=== PATIENT | female | born 1945 | race Caucasian/White ===

== ENCOUNTER 2018-09-17 10:49 | Outpatient (CLI) | payer BC, MEDICARE, SELFPAY ==
[2018-09-17 13:36] LABS: ALT 28 U/L (12-78); AST 23 U/L (15-37); Albumin 3.9 g/dL (3.4-5.0); Alkaline Phosphatase 91 U/L (46-116); Anion Gap 8.4 mmol/L (3-11); BUN 19 mg/dL (7-18); Bilirubin, Total 0.7 mg/dL (0.2-1.0); CO2 28.6 mmol/L (21.0-32.0); CREATININE 1.04 mg/dL (0.55-1.02); Calcium 9.3 mg/dL (8.5-10.1); Chloride 105 mmol/L (98-107); Cholesterol 187 mg/dL (50-200); Estimated GFR 51.94 (mL/min/1.73m2); Glucose 100 mg/dL (70-100); HDL Cholesterol 105 mg/dL (40-60); LDL CHOLESTEROL 68 mg/dL (<100); Potassium 4.8 mmol/L (3.5-5.1); Sodium 142 mmol/L (136-145); Total Protein 6.8 g/dL (6.4-8.2); Triglyceride 48 mg/dL (30-150)
== END 2018-09-17 11:09 ==
PROVIDERS: PCP Family Medicine; Visit Provider Family Medicine
DX: I10 Essential (primary) hypertension (principal); K90.0 Celiac disease
CPT/HCPCS: 36415; 80053; 80061; 83721

== ENCOUNTER 2019-07-29 07:13 | Outpatient (CLI) | payer BC, MEDICARE, SELFPAY ==
[2019-07-29 16:58] LABS: ALT 30 U/L (14-59); AST 21 U/L (15-37); Albumin 2.3 g/dL (3.4-5.0); Alkaline Phosphatase 97 U/L (46-116); Anion Gap 9.6 mmol/L (3-11); BUN 14 mg/dL (7-18); Bilirubin, Total 0.2 mg/dL (0.2-1.0); CO2 27.4 mmol/L (21.0-32.0); CREATININE 1.04 mg/dL (0.55-1.02); Calcium 8.6 mg/dL (8.5-10.1); Chloride 106 mmol/L (98-107); Glucose 99 mg/dL (70-100); Potassium 4.3 mmol/L (3.5-5.1); Sodium 143 mmol/L (136-145); Total Protein 6.7 g/dL (6.4-8.2)
== END 2019-07-29 07:33 ==
PROVIDERS: PCP Family Medicine; Visit Provider Family Medicine
DX: I10 Essential (primary) hypertension (principal)
CPT/HCPCS: 36415; 80053

== ENCOUNTER 2019-10-21 00:12 | Outpatient (CLI) | payer BC, MEDICARE, SELFPAY ==
--- NOTE | 2019-10-21 08:07 | ETT_ITS ---
APPROVED REPORT Exam: Exercise Treadmill Patient Location: Out-Patient Room/Bed: Stress Nurse: Darling Centeno RN BMI: 36.31 Baseline Rhythm: Sinus Rhythm Indications: Tachycardia. Pt reports episodes of heart racing occuring at rest associated with chest pain radiating into her right arm, subsiding withing a few minutes after taking aspirin. Medical History Medical History: Angina, HTN Cardiac Medications: Losartan. Amlodipine. Allergies: Sulfa. Ibuprofen. ASHLEY inhibitor. Hep B vaccine, Diclofenac. Cardiac Risk Factors: HTN, FHX of CAD, former smoker Pretest Chest Pain Characteristics: Non-exertional Chest pain Exercise History: Physically active Lung Sounds: Clear to auscultation Heart Sounds: Regular Stress Test Details Test: Exercise stress testing was performed using a Alexis protocol. Rest Stress HR Resting HR Supine: 65 bpm Max Heart Rate (APMHR): 146 bpm Resting HR Standin bpm Target HR (85% APMHR): 124 bpm Max HR Achieved: 126 bpm % of APMHR: 86 HR response to stress: Normal HR response to stress BP Resting BP Supine: 150/80 mmHg Resting BP Standin/90 mmHg Max BP: 200/70 mmHg Recovery BP: 160/80 mmHg BP response to stress: Normal blood pressure response to stress. ECG Resting ECG: Sinus Rhythm Stress ECG: Sinus Tachycardia ST Change: No significant ST segment changes Arrhythmia: Rare VPC's Recovery ECG: Sinus Rhythm Recovery ST Change: No significant ST segment changes Recovery Arrhythmia: None Clinical Reason for Termination: Fatigue Stress Symptoms: Leg Fatigue, General Fatigue Exercise duration: 4 min31 sec Highest Stage Reached: Stage 2: 2.5 mph at 12% grade. Exercise capacity: 6.45 METs Functional Capacity: Average Capacity Angina Score: None Stress ECG Conclusion 1. Exercised for 4 minutes and 30 seconds (6 METS). Exercise was stopped due to general fatigue. 2. Patient had no symptoms of ischemia during exercise. 3. Patient's heart rate judy to 126 bpm which is 86% of maximum predicted heart rate. Rate-pressure product was 23,000 4. There is no evidence of ischemia on the ECG at this level of stress. 5. The Spain Score (4) estimates an annual cardiovascular mortality of 1% and a five year survival of 94%. Using the [place] Score there is an intermediate probability of angiographic coronary disease. Protocol Used: Alexis Protocol Stress Test Summary STAGE Time (mins) Speed (mph) Grade (%) HR BP SYMPTOMS METS Supine 65 150/80 Standing 69 160/90 1 3 1.7 10 126 168/96 4.6 2 6 2.5 12 135 7 1 min recovery 101 200/70 3 min recovery 83 190/90 6 min recovery 75 160/80
== END 2019-10-21 00:32 ==
PROVIDERS: PCP Family Medicine; Visit Provider Family Medicine
DX: R07.9 Chest pain, unspecified (principal); R00.0 Tachycardia, unspecified; I10 Essential (primary) hypertension; Z82.49 Family history of ischemic heart disease and other diseases of the circulatory system
CPT/HCPCS: 93017

== ENCOUNTER 2019-10-21 02:49 | Outpatient (CLI) | payer BC, MEDICARE, SELFPAY | END 2019-10-21 03:09 | PROVIDERS: PCP Family Medicine; Visit Provider Family Medicine | DX: R00.0 Tachycardia, unspecified (principal); I47.1 Supraventricular tachycardia | CPT/HCPCS: 93225 ==

== ENCOUNTER 2019-10-25 17:46 | Outpatient (CLI) | payer BC, MEDICARE, SELFPAY ==
--- NOTE | 2019-10-26 13:28 | W.HOLTRPT ---
Date of service: 10/26/19 Time of Service: 13:28 Holter Monitor Report Holter Monitor Note: This is a 2-day Holter monitor ordered for the indication of tachycardia. ?The patient was in normal sinus rhythm for the majority of the recording. (Heart rate range 51 bpm - 130 bpm) ?There were 2 episodes of supraventricular tachycardia with the longest lasting 7 beats. ?There were rare (0.1%) premature atrial contractions. ?There were 0 episodes of ventricular tachycardia and rare (0.2%) single ventricular ectopic beats. ?There were no episodes of atrial fibrillation no pauses greater than 3 seconds and no evidence of high degree heart block. ?There were no patient triggered events.
== END 2019-10-25 18:06 ==
PROVIDERS: PCP Family Medicine; Visit Provider Family Medicine
DX: R00.0 Tachycardia, unspecified (principal); I47.1 Supraventricular tachycardia
CPT/HCPCS: 93226

== ENCOUNTER 2019-10-26 13:28 | Outpatient (CLI) | payer BC, MEDICARE, SELFPAY | END 2019-10-26 13:48 | PROVIDERS: PCP Family Medicine; Referring Provider Family Medicine; Visit Provider Internal Medicine Cardiovascular Disease | DX: R00.0 Tachycardia, unspecified (principal); I47.1 Supraventricular tachycardia | CPT/HCPCS: 93227 ==

== ENCOUNTER 2019-11-04 01:39 | Outpatient (CLI) | payer BC, MEDICARE, SELFPAY ==
--- NOTE | 2019-11-04 13:50 | DI.US_ITS ---
APPROVED REPORT EXAM: Comprehensive 2D, Doppler, and color-flow Echocardiogram Patient Location: Out-Patient Bean Snipper: Kelsey Reardon RDCS (AE) Rhythm: NSR Indications: chest pain, unspecified R07.9, tachycardia R00.0 Conclusion Normal left ventricular wall thickness and chamber size. Estimated ejection fraction is 65 to 70%. There are no segmental wall motion abnormalities There is no chamber enlargement Aortic valve is mildly sclerotic. There is no aortic stenosis or regurgitation There is trace to mild mitral, pulmonic and tricuspid regurgitation Wall motion Left Ventricle The left ventricle is normal size. The left ventricular ejection fraction is within the normal range. There is normal left ventricular wall thickness. There is normal LV segmental wall motion. The left ventricular diastolic function is normal for age LVEF is estimated to be 65-70%. Right Ventricle The right ventricle is normal size. The right ventricular systolic function is normal. Atria The left atrium size is normal. The right atrium size is normal. Aortic Valve The aortic valve is trileaflet and mildly sclerotic There is no aortic valvular stenosis. No aortic r egurgitation is present. Mitral Valve The mitral valve is normal in structure. Trace to mild mitral regurgitation. Tricuspid Valve The tricuspid valve is normal in structure. Trace to mild tricuspid regurgitation. Pulmonic Valve The pulmonary valve is normal in structure. Trace to mild pulmonic regurgitation. Great Vessels The aortic root is normal in size. The ascending aorta is normal in size. IVC is normal in size and c ollapses >50% with inspiration. Pericardium Prominent anterior epicardial fat pad is present. 2D Dimensions IVSD d PLAX 0.91 cm F: 0.6-1.0 LV Vol A2C d MOD 74.7 mL LVPW d PLAX 0.78 cm F: 0.6 - 1.0 LV Vol A4C d MOD 114.5 mL LVID d PLAX 4.85 cm F: 3.8 - 5.2 LA vol/ BSA A2C s A-L 42.6 mL/m2 LVDs 2.55 cm F: 2.2 - 3.5 LA vol/ BSA A4C s A-L 29.1 mL/m2 Ao Root d 3.13 cm F: 2.7 - 3.3 LA Vol/ BSA Biplane s A-L 38.5 mL/m2 RVID Base (AP4) 4.10 cm (M/F) 2.5-4.1 LA Area A4C s MOD 18.86 cm2 RA Area A4C 14.09 cm2 LA Area A2C s MOD 24.97 cm2 RA Vol/ BSA A4C s A-L 15.2 mL/m2 LV EF A4C MOD 77.6 % Ao Asc Diam d 3.46 cm F: 2.3 - 3.1 LV EF A2C MOD 63.6 % LV EF Teichholz 78.0 % LV EF Biplane MOD 70.7 % LVEF (Hsieh's) 70.69 % F: 54 - 74 IVC Diam exp d SLAX 1.97 cm LV Volume 68.98 mL F: 46 - 106 LV Volume Index 33.16 mL/m2 F: 29 - 61 LV Vol Biplane MOD 93.2 mL FS 46.70 % M-Mode TAPSE 2.48 cm (M/F) <1.7 LV Diastology MV E' medial 0.098 (>0.07 m/s) E/A Ratio 0.7 LV E/e MED 7.75 (<14) PV S/D Ratio 2.54 MV E' lateral 0.082 (>0.1 m/s) A-A Duration 151.94 msec LV E/e LAT 9.30 (<14) MV E Vmax 0.76 (0.4-1.3 m/s) MV E/E' medial 7.79 MV A Vmax 1.05 (0.4-1.3 m/s) MV E/E' lateral 9.31 MV E/A Ratio 0.72 Aortic Valve LVOT Area 3.17 cm2 AoV Area Vmax 1.72 cm2 LVOT Vmax 1.07 m/s AoV Area/ BSA (Vmax) 0.82 cm2/m2 LVOT Mean Abel. 0.79 m/s AJ Mean Abel. 1.86 cm2 LVOT Peak Grad 4.5 mmHg AJ Mean Abel. Index 0.89 cm2/m2 LVOT Mean Grad 2.7 mmHg LVOT VTI 0.218 m LVOT Diam s 2.00 cm (M/F) 1.5-2.5 AoV Vmax 1.97 (0.5-1.3 m/s) Velocity Ratio 0.54 AoV Mean Aebl. 1.34 m/s AoV Peak Grad 15.5 mmHg LVOT SV 68.93 mL AoV Mean Grad 8.0 (<5 mmHg) AoV VTI 0.386 (0.18-0.25 m) AoV Area VTI 1.79 (2.5-4.5 cm2) AoV Area/ BSA (VTI) 0.86 cm/m2 Mitral Valve MV DT 354 (160-240 msec) MR VC 0.27 (0-0.3 cm) MV PHT 103 msec RUPV S Vmax 0.68 m/s MV Area PHT 2.14 cm2 RUPV D Vmax 0.27 m/s MV VTI 0.181 m MV Area VTI 3.81 (4.0-6.0 cm2) Pulm Vein s 0.68 m/s Pulm Vein d 0.27 m/s Pulm Vein a 0.31 m/s RUPV A Vmax 0.31 m/s RUPV A Dur 152 msec Pulmonary Valve PV Vmax 1.08 (0.5-1.5 m/s) RVOT Peak Gr. 3.42 mmHg PV Peak Grad 4.7 mmHg RVOT Mean Gr. 1.95 mmHg PV Mean Grad 2.7 mmHg RVOT VTI 0.197 m PV VTI 0.210 m RVOT Vmax 0.92 m/s Tricuspid Valve TR Peak Grad 28.2 mmHg TR Vmax 2.66 m/s RA Pressure 3.00 mmHg RVSP (TR) 31.2 mmHg
== END 2019-11-04 01:59 ==
PROVIDERS: PCP Family Medicine; Visit Provider Family Medicine
DX: R07.9 Chest pain, unspecified (principal); R00.0 Tachycardia, unspecified; I35.8 Other nonrheumatic aortic valve disorders; I34.0 Nonrheumatic mitral (valve) insufficiency; I10 Essential (primary) hypertension
CPT/HCPCS: 93306

== ENCOUNTER 2020-11-16 21:19 | Outpatient (REF) | payer BC, MEDICARE, SELFPAY ==
[2020-11-16 13:48] LABS: ALT 26 U/L (14-59); AST 17 U/L (15-37); Albumin 3.9 g/dL (3.4-5.0); Alkaline Phosphatase 90 U/L (46-116); Anion Gap 7.6 mmol/L (3-11); BUN 17 mg/dL (7-18); Bilirubin, Total 0.5 mg/dL (0.2-1.0); CO2 29.4 mmol/L (21.0-32.0); CREATININE 1.1 mg/dL (0.55-1.02); Calcium 9.4 mg/dL (8.5-10.1); Chloride 104 mmol/L (98-107); Estimated GFR 48.42 (mL/min/1.73m2); Glucose 105 mg/dL (74-106); Potassium 5.2 mmol/L (3.5-5.1); Sodium 141 mmol/L (136-145); Total Protein 6.8 g/dL (6.4-8.2)
== END 2020-11-16 21:20 | disposition home or self-care (01) ==
LOC: LBN 21:19
PROVIDERS: PCP Family Medicine; Visit Provider Family Medicine
DX: I10 Essential (primary) hypertension (principal)
CPT/HCPCS: 80053

== ENCOUNTER 2021-01-18 10:40 | Outpatient (CLI) | payer BC, MEDICARE, SELFPAY ==
[2021-01-19 15:15] LABS: COVID-19 RT-PCR UVMMC Result Negative (Negative)
== END 2021-01-18 10:41 | disposition home or self-care (01) ==
PROVIDERS: PCP Family Medicine; Visit Provider Family Medicine
DX: Z20.822 Contact with and (suspected) exposure to COVID-19 (principal); J02.9 Acute pharyngitis, unspecified
CPT/HCPCS: U0003

== ENCOUNTER 2021-08-27 03:58 | Outpatient (CLI) | payer BC, MEDICARE, SELFPAY ==
[2021-08-27 10:51] LABS: HCT 46.7 % (36.0-46.0); HGB 14.8 g/dL (11.2-15.7); MCH 28.2 pg (27.0-33.0); MCHC 31.7 % (32.0-36.0); MPV 9.9 fL (8.0-11.0); Platelet Count 288 10^3/uL (130-400); RBC 5.25 10^6/uL (3.93-5.22); RDW 13.7 % (11.7-14.6); RDW-SD 44.6 fL; WBC 6.92 10^3/uL (4.4-10.8)
[2021-08-27 11:51] LABS: ALT 26 U/L (14-59); AST 17 U/L (15-37); Albumin 3.9 g/dL (3.4-5.0); Alkaline Phosphatase 97 U/L (46-116); Anion Gap 8.4 mmol/L (3-11); BUN 17 mg/dL (7-18); Bilirubin, Total 0.5 mg/dL (0.2-1.0); CO2 27.6 mmol/L (21.0-32.0); Calcium 8.7 mg/dL (8.5-10.1); Chloride 105 mmol/L (98-107); Estimated GFR 53.91 (mL/min/1.73m2); Glucose 101 mg/dL (74-106); Potassium 4.4 mmol/L (3.5-5.1); Sodium 141 mmol/L (136-145); TSH (W/Ref FT4) 1.42 uIU/mL (0.36-3.74); Total Protein 6.7 g/dL (6.4-8.2)
[2021-08-27 12:02] LABS: Iron 73 ug/dL (50-170)
== END 2021-08-27 03:59 | disposition home or self-care (01) ==
LOC: LBO 03:59
PROVIDERS: PCP Family Medicine; Visit Provider Family Medicine
DX: I10 Essential (primary) hypertension (principal); R53.83 Other fatigue
CPT/HCPCS: 36415; 80053; 85027; 83540; 84443

== ENCOUNTER 2021-10-05 13:03 | Emergency (ER) | payer BC, MEDICARE, SELFPAY ==
[2021-10-05] VITALS (26 sets, daily range): BP systolic 147–194; BP diastolic 73–99; PULSE 83–110; RESP 9–30; O2SAT 95–100
[2021-10-05] MEDS: HYDROmorphone 2 MG/ML VIAL 1 MG IVP (13:35)
--- NOTE | 2021-10-05 13:46 | ED.GENADUL_ITS ---
Discharge Plan Disposition Patient Disposition: HOME Condition: Stable Discharge Details Clinical Impression: Closed fracture of proximal phalanx of right ring finger, Dislocation of shoulder, left, closed Primary Care Provider: Ignacia De La Rosa ED Provider: Dmitri Mcfarland Home Meds and New Rx's Prescriptions: Continued biotin 1 mg capsule 1 mg PO DAILY RF: 0 cyanocobalamin (vitamin B-12) [Vitamin B-12] 500 MCG tablet 1,000 mcg PO DAILY RF: 0 Fish Oil 1 EACH capsule 1 cap PO DAILY RF: 0 acetaminophen [Tylenol Extra Strength] 500 MG tablet 1,000 mg PO BID PRNRF: 0 Co Q-10 (with Vit E) 1 EACH capsule 1 ea PO DAILY RF: 0 multivitamin [Daily Multiple] 1 EACH tablet 1 ea PO DAILY RF: 0 losartan 100 mg tablet 100 mg PO DAILY Qty: 90 RF: 12 amlodipine 5 mg tablet 5 mg PO DAILY Qty: 90 RF: 4 meclizine 25 mg tablet 25 mg PO TID PRN (Reason: dizziness) Qty: 50 RF: 5 ferrous sulfate 28 mg iron Tablet 28 mg PO BID RF: 0 Discharge Instructions Instructions: Shoulder Dislocation (ED), Finger Fracture (ED) Additional Instructions: Please keep finger splint intact until follow-up with orthopedics. Please use shoulder sling until follow-up with orthopedics. Please take acetaminophen (tylenol) - 650mg every 6 hours by mouth as needed for pain. Your blood pressure was elevated today which I suspect is secondary to pain but please be sure to monitor and follow-up with your primary care physician. If blood pressure remains elevated, your blood pressure medication may need to be adjusted. Return to the ER immediately for any worsening or new concerning symptoms. Referrals: [facility] [Provider Group] Ignacia De La Rosa MD, [place] [Primary Care Provider] - Medical Decision Making 3091 --76-year-old female presents after mechanical fall from standing to the ground with injury to her left shoulder and right fourth digit. Patient is neurovascular intact distal upper extremities. No head injury. No neck pain or tenderness. Concern for left proximal humerus fracture. Plan to obtain x-ray. Patient has significant discomfort - I will provide Dilaudid 1 mg IV. Consider fracture of the right fourth digit. Will obtain x-ray. --X-ray of the left shoulder was interpreted by me: Dislocation. X-ray of the right hand was interpreted by me: Fracture proximal phalanx Reviewed results with the patient and discussed treatment recommendation, patient provided informed consent to procedural sedation and closed reduction. 1515--reduction successful. Post reduction film interpreted by me and shows intact joint. Sling has been applied. For treatment of rt 4th proximal phalanx fracture, volar splint was applied to third and fourth digits that extends to palm with fingers held in extension. Plan will be for follow-up with orthopedics next week. Patient was encouraged to use Tylenol to control her pain. Usual customary discharge instructions otherwise reviewed with the patient HPI General Mode of arrival: ambulatory . Date/Time Provider Initiated Documentation: 10/05/21 13:05 . Limitations to Documentation: no limitations . Information obtained by: patient . HPI Narrative: 76-year-old female with history of hypertension, presents after mechanical trip and fall from standing to the ground couple hours prior to arrival. Patient notes she landed on outstretched left arm and injured her shoulder. The chief complaint is shoulder pain. Pain is moderate and worse with any attempted movement of the shoulder. She has no associated numbness or tingling. She also notes pain in her right fourth digit that is mild. She did not hit her head, did not lose consciousness, she has no headache neck or back pain Related Data Home Medications Medication Instructions Recorded Confirmed Fish Oil 1 cap PO DAILY 05/13/13 10/05/21 cyanocobalamin (vitamin B-12) 1,000 mcg PO DAILY 05/13/13 10/05/21 [Vitamin B-12] acetaminophen [Tylenol Extra 1,000 mg PO BID PRN 11/11/13 10/05/21 Strength] Co Q-10 (with Vit E) 1 ea PO DAILY 01/22/16 10/05/21 multivitamin [Daily Multiple] 1 ea PO DAILY 07/11/16 10/05/21 biotin 1 mg capsule 1 mg PO DAILY 11/16/20 10/05/21 losartan 100 mg tablet 100 mg PO DAILY #90 tab-cap 06/18/21 10/05/21 amlodipine 5 mg tablet 5 mg PO DAILY #90 tab 07/17/21 10/05/21 meclizine 25 mg tablet 25 mg PO TID PRN #50 tab-cap 10/03/21 10/05/21 ferrous sulfate 28 mg PO BID 10/05/21 10/05/21 Previous Rx's Medication Instructions Recorded losartan 100 mg tablet 100 mg PO DAILY #90 tab-cap 06/18/21 amlodipine 5 mg tablet 5 mg PO DAILY #90 tab 07/17/21 meclizine 25 mg tablet 25 mg PO TID PRN #50 tab-cap 10/03/21 Allergies Allergy/AdvReac Type Severity Reaction Status Date / Time Sulfa (Sulfonamide Allergy Severe Unverified 10/05/21 13:45 Antibiotics) ibuprofen Allergy Intermediate Hives Unverified 10/05/21 13:45 ASHLEY Inhibitors Allergy Unverified 10/05/21 13:45 hepatitis B virus vaccine Allergy Unverified 10/05/21 13:45 diclofenac AdvReac Intermediate Skin Rash Unverified 10/05/21 13:45 General Stated Complaint: Orthopedic NATHAN: 3 Review of Systems All systems reviewed & are unremarkable except as noted in HPI and below Constitutional Constitutional: Denies fever(s) Cardiovascular Cardiovascular: Denies dyspnea Respiratory Respiratory: Denies dyspnea Musculoskeletal Musculoskeletal: Reports as per HPI PFSH All Active Problems (Updated 10/05/21 @ 15:22 by Dmitri Mcfarland MD) Closed fracture of proximal phalanx of right ring finger (Acute) Dislocation of shoulder, left, closed (Acute) Fatigue (Acute) Celiac disease (Chronic 05/13/13) Chronic pain of left ankle (Chronic 11/21/16) Essential hypertension (Chronic) Knee pain (Chronic) Surgery 2014 s/p replacements 09/15/05 Ulcerative colitis, unspecified (Chronic 05/13/13) S/P colectomy 1994 Medical History Abdominal pain recurrent Abdominal pain Anemia now resolved Anemia Calculus of gallbladder with cholecystitis (05/13/13) Dizziness and giddiness 05/13/13 Dizziness and giddiness (05/13/13) Hematuria unspecified U/A POS: , 04/17, 02/19, 05/23 retest-normal Hematuria Knee pain Shingles Tachycardia Vertigo BPV Vertigo Surgical History Cholecystectomy (~1996) History of total colectomy for Ulcerative colitis w/perforation; 1 1/2 remaining History of total colectomy Replacement of total knee joint (03/28/14) [facility] [place]; B/L REPLACEMENT S/P cholecystectomy 09/15/96 S/P tonsillectomy and adenoidectomy S/P total knee replacement 03/15/14 B/L Status post cholecystectomy Status post tonsillectomy and adenoidectomy Status post total knee replacement Tonsillectomy and adenoidectomy (~1960) Total colectomy (~1994) FOR ULCERATIVE COLITIS W/ PERFORATION;1 09/16 REMAINING. Family History Mother , 93 Diabetes Essential hypertension Arthritis Heart disease Stroke Cataract Glaucoma Father , 52 Heart disease Myocardial infarction Tobacco abuse Alcohol abuse Sister Essential hypertension Arthritis Cataract Glaucoma Sister Essential hypertension Arthritis Heart disease A-FIB Cataract Glaucoma Brother Essential hypertension Arthritis Cataract Glaucoma Substance abuse Maternal Grandfather Stroke Paternal Grandfather , 96 Stroke Colon cancer Maternal Grandmother , 77 Heart disease Myocardial infarction Paternal Grandmother , 90 Stroke Daughter Thyroid cancer COUSIN RA (rheumatoid arthritis) Thyroid cancer GREAT GRANDMOTHER Thyroid cancer Social History Smoking/Tobacco Use Status: Former Tobacco Use Quit Date: 09/15/81 Tobacco: How many years used: 18 Second Hand Exposure: Yes () Smoking risk assessment performed?: Yes Alcohol Intake: never Drug use: Never Substance use type: does not use Caregiver/Support person: No Household members: none Housing: house Communication Needs: None Do you need help understanding health information?: Never Pets and animals: Yes Pets and animals: horse(s) Sexually active: No Do you think of yourself as: straight/heterosexual Current gender identity: female What is your relationship status?: How often do you talk on the phone with friends or family?: twice per week How often do you get together with friends or relatives?: decline to answer How often do you attend hinduism or mandaeism services?: 4 or more times per year Do you belong to any clubs or organized social groups?: no Panel score (0-1 are the most socially isolated patients): 1 What type of physical activity do you participate in: walking and other Details: 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 Duration: > 90 minutes/day Frequency: 5-6 times per week Payton/Latter-Day: Jewish Special payton needs: No Seatbelt use: always Helmet use: Yes Helmet use: always Drive 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 Do you feel safe at home: Yes Do you feel safe in your relationship?: Yes Exam Const General: cooperative and no acute distress HENMT Head: normocephalic and atraumatic Mouth: moist mucous membranes Eyes Conjunctivae: normal conjunctivae Sclera: normal sclerae Neck Neck: full ROM and nontender Resp Auscultation: clear to auscultation bilaterally, no rales, no rhonchi and no wheezes Cardio Rate: regular rate and not tachycardic Rhythm: regular rhythm GI Palpation: soft, not firm, no guarding, no masses, not rigid and nontender Skin General skin exam: no rashes or lesions noted Neuro General: patient alert, patient awake, patient oriented x3 and tone normal Extrem General: other (Neurovascular intact bilateral distal upper extremity) Right upper extremity: hand Details: tenderness Location: of the 4th digit Location: at the MCP joint, at the proximal phalanx and at the PIP joint and abnormal ROM of finger (Fourth digit cannot fully extend as result of swelling, strength intact) Left upper extremity: shoulder/upper arm Details: tenderness Location: of the proximal humerus and abnormal ROM Details: held in an abnormal fashion Details: in ADduction and elbow/forearm Details: normal to inspection Course Vital Signs Vital signs: Vital Signs Pulse 110 H 10/05/21 13:07 Respiratory Rate 18 10/05/21 13:07 Blood Pressure 194/99 H 10/05/21 13:07 Pulse Oximetry 99 10/05/21 13:07 Pulse 110 H 10/05/21 13:07 Respiratory Rate 18 10/05/21 13:07 Respiratory Effort Non-Labored 10/05/21 13:11 Blood Pressure 194/99 H 10/05/21 13:07 Blood Pressure Position Sitting 10/05/21 13:07 Pulse Oximetry 99 10/05/21 13:07 Oxygen Delivery Method Room Air 10/05/21 13:07 Oxygen Flow Rate 0 10/05/21 13:07 Pain Level 10 10/05/21 13:21 Procedures Orthopedic Joint Reduction Joint #1: Time Out Performed: Yes Side: left Joint Reduction Location: shoulder Analgesia: procedural sedation Shoulder Technique Used (if applicable): traction/counter-traction and external rotation Post-reduction neuro exam: intact Post-reduction vascular: intact Post Reduction X-Ray Obtained: Yes Post Reduction X-Ray Results: reduced Splint Applied: Yes Patient Tolerated Procedure: well and no complications Orthopedic Splinting/Casting Injury #1: Side: right Upper Extremity Injury Location: finger Upper Extremity Immobilizer: volar splint Additional Comments: volar slint applied to 3rd and 4th digits Procedural Sedation Indication: fracture/dislocation reduction ASA Class: II Preparation: cafeteria monitor applied, pulse oximeter, capnometry used and supplemental O2 applied IV Propofol dose (mg): 200 Patient Tolerated Procedure: well Complications: none
--- NOTE | 2021-10-05 14:08 | DI.RAD_ITS ---
Exam(s) XR SHOULDER LT COMPLETE 2+V EXAM: XR SHOULDER LT COMPLETE 2+V CLINICAL HISTORY: pain, fall. TECHNIQUE: 2D digital imaging was performed. COMPARISON: CR CHEST 2 VIEWS PA,LAT from 10/01/2010 FINDINGS: BONES: Question an area of flattening at the superior humeral head could represent a Hill-Sachs lesio n. No definite glenoid fracture is seen. Old left upper rib fractures.. No bony destructive lesion is seen. JOINTS: Anterior dislocation of the humeral head with respect to the glenoid. AC joint is unremarkable. SOFT TISSUE: Normal. IMPRESSION: Anterior shoulder dislocation. DATA REPOSITORY: RADIATION DOSE DELIVERED:
--- NOTE | 2021-10-05 14:12 | DI.RAD_ITS ---
Exam(s) XR FINGER RT RING EXAM: XR FINGER RT RING CLINICAL HISTORY: pain, trauma. TECHNIQUE: 2D digital imaging was performed. COMPARISON: No exams were available for comparison FINDINGS: BONES: There is a mildly displaced fracture involving the proximal phalanx of the ring finger. There is no extension to the articular surface. No additional fractures are seen.. No bony destructive l esion is seen. JOINTS: Degenerative changes are noted in the interphalangeal joints, metacarpophalangeal joints and at the 1st carpal metacarpal joint. SOFT TISSUE: Normal. IMPRESSION: Fracture of the proximal phalanx of the ring finger. DATA REPOSITORY: RADIATION DOSE DELIVERED:
[2021-10-05] MEDS: Propofol 200 MG/20 ML VIAL 100 MG IVP (15:06)
--- NOTE | 2021-10-05 15:13 | RESPIRATORY ---
Pt stable, awake and alert on room air post sedation. No acute respiratory distress noted during procedure.
--- NOTE | 2021-10-05 15:23 | DI.RAD_ITS ---
Exam(s) XR SHOULDER LT COMP POST REDUC EXAM: XR SHOULDER LT COMP POST REDUC CLINICAL HISTORY: SHOULDER REDUCED. TECHNIQUE: 2D digital imaging was performed. COMPARISON: CR XR SHOULDER LT COMPLETE 2+V from 10/05/2021 2 portable views. FINDINGS: The previously noted dislocation has been has been reduced. No fracture is visible on the two views performed. DATA REPOSITORY: RADIATION DOSE DELIVERED:
== END 2021-10-05 16:24 | disposition home or self-care (01) ==
PROVIDERS: Emergency Provider Student in an Organized Health Care Education/Training Program; PCP Family Medicine
DX: S62.614A Displaced fracture of proximal phalanx of right ring finger, initial encounter for closed fracture (principal); S43.085A Other dislocation of left shoulder joint, initial encounter; W18.39XA Other fall on same level, initial encounter; R03.0 Elevated blood-pressure reading, without diagnosis of hypertension
CPT/HCPCS: 23650; 29125; 73030; 96374; 99284; 73140; J2704

== ENCOUNTER 2021-10-11 12:39 | Outpatient (CLI) | payer BC, MEDICARE, SELFPAY ==
--- NOTE | 2021-10-11 09:45 | DI.RAD_ITS ---
Exam(s) XR FINGER RT RING EXAM: XR FINGER RT RING CLINICAL HISTORY: follow up. TECHNIQUE: 2D digital imaging was performed of the right finger. Three views were obtained. PA/AP, oblique, and lateral views were obtained. COMPARISON: CR XR FINGER RT RING from 10/05/2021 FINDINGS: BONES: There has been no change in alignment of the fracture involving the proximal phalanx of the ri ght ring finger. No bony destructive lesion is seen. JOINTS: Mild degenerative changes are seen at the DIP joint of the ring finger. SOFT TISSUE: There is soft tissue swelling of the ring finger. IMPRESSION: Stable alignment of the fracture involving the proximal phalanx of the right ring finger. DATA REPOSITORY: RADIATION DOSE DELIVERED:
== END 2021-10-11 12:40 | disposition home or self-care (01) ==
LOC: DIORS 12:40
PROVIDERS: PCP Family Medicine; Referring Provider Family Medicine; Visit Provider Physician Assistant Surgical
DX: S62.614A Displaced fracture of proximal phalanx of right ring finger, initial encounter for closed fracture (principal); W19.XXXA Unspecified fall, initial encounter
CPT/HCPCS: 73140

== ENCOUNTER 2021-10-31 02:37 | Outpatient (CLI) | payer BC, MEDICARE, SELFPAY ==
[2021-10-31 20:05] LABS: ALT 23 U/L (14-59); AST 19 U/L (15-37); Alkaline Phosphatase 93 U/L (46-116); Anion Gap 9.2 mmol/L (3-11); BUN 20 mg/dL (7-18); Bilirubin, Total 0.4 mg/dL (0.2-1.0); CO2 26.8 mmol/L (21.0-32.0); CREATININE 1.1 mg/dL (0.55-1.02); Calcium 9.2 mg/dL (8.5-10.1); Chloride 104 mmol/L (98-107); Estimated GFR 48.29 (mL/min/1.73m2); Glucose 92 mg/dL (74-106); Potassium 4.4 mmol/L (3.5-5.1); Sodium 140 mmol/L (136-145); Total Protein 6.7 g/dL (6.4-8.2)
[2021-11-02 10:40] LABS: Hepatitis C Ab w Rflx HCV PCR Negative (Negative)
== END 2021-10-31 02:38 | disposition home or self-care (01) ==
LOC: LBO 02:37
PROVIDERS: PCP Family Medicine; Visit Provider Family Medicine
DX: Z11.59 Encounter for screening for other viral diseases (principal); I10 Essential (primary) hypertension
CPT/HCPCS: 36415; 80053; 86803

== ENCOUNTER 2021-11-06 10:34 | Outpatient (CLI) | payer BC, MEDICARE, SELFPAY ==
--- NOTE | 2021-11-06 10:00 | DI.RAD_ITS ---
Exam(s) XR FINGER RT RING EXAM: XR FINGER RT RING CLINICAL HISTORY: RRF FRACTURE TECHNIQUE: COMPARISON: CR XR FINGER RT RING from 10/11/2021 FINDINGS: Three views were obtained. The previously described fracture of the proximal phalanx of the ring fin girma is again noted with no gross interval change in alignment of the fracture fragments in comparison with the examination of October 11. There is callus at the fracture site. IMPRESSION: RADIATION DOSE DELIVERED: Total DLP
== END 2021-11-06 10:35 | disposition home or self-care (01) ==
LOC: DIORS 10:35
PROVIDERS: PCP Family Medicine; Referring Provider Family Medicine; Visit Provider Student in an Organized Health Care Education/Training Program
DX: S62.614D Displaced fracture of proximal phalanx of right ring finger, subsequent encounter for fracture with routine healing (principal); W19.XXXD Unspecified fall, subsequent encounter
CPT/HCPCS: 73140

== ENCOUNTER 2021-12-04 10:00 | Outpatient (CLI) | payer BC, MEDICARE, SELFPAY ==
--- NOTE | 2021-12-04 09:45 | DI.RAD_ITS ---
Exam(s) XR FINGER RT RING EXAM: XR FINGER RT RING INDICATION: F/U right ring finger fracture. COMPARISON: CR XR FINGER RT RING from 11/06/2021 TECHNIQUE: 2D digital imaging was performed. Three views FINDINGS: There has been continued healing of the fracture of the proximal phalanx. The alignment is unchanged . Degenerative changes are again noted of the interphalangeal joints. No new abnormalities. DATA REPOSITORY: RADIATION DOSE DELIVERED:
== END 2021-12-04 10:01 | disposition home or self-care (01) ==
LOC: DIORS 10:00
PROVIDERS: PCP Family Medicine; Referring Provider Family Medicine; Visit Provider Physician Assistant
DX: S62.614D Displaced fracture of proximal phalanx of right ring finger, subsequent encounter for fracture with routine healing (principal); W19.XXXD Unspecified fall, subsequent encounter
CPT/HCPCS: 73140

== ENCOUNTER 2022-10-29 02:41 | Outpatient (CLI) | payer MEDICARE, SELFPAY ==
[2022-10-29 14:28] LABS: ALT 21 U/L (14-59); AST 18 U/L (15-37); Albumin 3.7 g/dL (3.4-5.0); Alkaline Phosphatase 100 U/L (46-116); Anion Gap 4.6 mmol/L (3-11); BUN 16 mg/dL (7-18); Bilirubin, Total 0.4 mg/dL (0.2-1.0); CO2 30.4 mmol/L (21.0-32.0); CREATININE 1.3 mg/dL (0.55-1.02); Calcium 8.9 mg/dL (8.5-10.1); Chloride 105 mmol/L (98-107); Estimated GFR 42.35 (mL/min/1.73m2); Glucose 120 mg/dL (74-106); Potassium 4.4 mmol/L (3.5-5.1); Sodium 140 mmol/L (136-145); Total Protein 6.8 g/dL (6.4-8.2)
== END 2022-10-29 02:42 | disposition home or self-care (01) ==
LOC: LBO 02:41
PROVIDERS: PCP Family Medicine; Visit Provider Family Medicine
DX: I10 Essential (primary) hypertension (principal)
CPT/HCPCS: 36415; 80053

== ENCOUNTER 2024-01-26 04:56 | Outpatient (CLI) | payer OTHER, MEDICARE, SELFPAY ==
[2024-01-26 12:07] LABS: Hemoglobin A1C 5.8 % (<5.7)
[2024-01-26 12:11] LABS: ALT 19 U/L (14-59); AST 17 U/L (15-37); Albumin 3.8 g/dL (3.4-5.0); Alkaline Phosphatase 100 U/L (46-116); Anion Gap 11.5 mmol/L (3-11); BUN 21 mg/dL (7-18); Bilirubin, Total 0.6 mg/dL (0.2-1.0); CO2 26.5 mmol/L (21.0-32.0); CREATININE 1.1 mg/dL (0.55-1.02); Calculated LDL 80 mg/dL (<100); Chloride 105 mmol/L (98-107); Cholesterol 205 mg/dL (<200); Estimated GFR 51.43 (mL/min/1.73m2); Glucose 98 mg/dL (74-106); HDL Cholesterol 108 mg/dL (40-60); Sodium 143 mmol/L (136-145); Total Protein 7.2 g/dL (6.4-8.2); Triglyceride 86 mg/dL (<150)
== END 2024-01-26 04:57 | disposition home or self-care (01) ==
PROVIDERS: PCP Family Medicine; Visit Provider Family Medicine
DX: I10 Essential (primary) hypertension (principal); E11.9 Type 2 diabetes mellitus without complications
CPT/HCPCS: 36415; 80053; 80061; 83036

== ENCOUNTER 2024-10-22 09:27 | Day surgery (SDC) | payer OTHER, MEDICARE, SELFPAY ==
[2024-10-22] MEDS: Tropicam./Phenyleph. (1/2.5%) 5 ML BTL OD ×3 (09:52→10:05)
[2024-10-22 09:56] VITALS: BP 167/78; PULSE 84; RESP 18; TEMP 36.6; O2SAT 98
--- NOTE | 2024-10-22 10:22 | ANES.PREOP_ITS ---
General Info Date of Service Date Performed: 10/22/24 Height: 5 ft 7 in Weight: 103.1 kg Body Mass Index (BMI): 35.6 Surgical Procedure: Operation Date: 10/22/24 10:40 Proposed Procedure Side Surgeon p Cataract Extraction with IOL Implant/Glaucoma Istent Right Moy Sevilla MD Meds Allergies and Home Medications Allergies Allergy/AdvReac Type Severity Reaction Status Date / Time Sulfa (Sulfonamide Allergy Severe Other (See Verified 10/22/24 09:47 Antibiotics) Comment) diclofenac Allergy Intermediate Skin Rash Verified 10/22/24 09:47 ibuprofen Allergy Intermediate Hives Verified 10/22/24 09:47 ASHLEY Inhibitors Allergy Unknown Verified 10/22/24 09:47 hepatitis B virus vaccine Allergy Unknown Verified 10/22/24 09:47 loratadine (From Claritin) AdvReac set off Verified 10/22/24 09:47 my colitis and caused urinary urgency Home Medication ?Medication ?Instructions ?Recorded cyanocobalamin (vitamin B-12) 500 1,000 mcg PO DAILY 05/13/13 mcg tablet (Vitamin B-12) omega-3 fatty acids-fish oil 340 1 cap PO DAILY 05/13/13 mg-1,000 mg capsule (Fish Oil) acetaminophen 500 mg tablet 1,000 mg PO BID PRN 11/11/13 (Tylenol Extra Strength) coenzyme Q10 50 mg-vitamin E 5 1 ea PO DAILY 01/22/16 unit capsule (Co Q-10 (with Vit E)) multivitamin (Daily Multiple 1 ea PO DAILY 07/11/16 tablet) biotin 1 mg capsule 1 mg PO DAILY 11/16/20 meclizine 12.5 mg tablet 12.5 mg PO TID PRN dizziness #30 11/20/23 tabs ferrous fumarate 325 mg (106 mg 325 mg PO DAILY 12/01/23 iron) tablet magnesium 200 mg tablet 200 mg PO DAILY 06/01/24 losartan 100 mg tablet 100 mg PO DAILY #90 tab-caps 10/11/24 amlodipine 5 mg tablet 5 mg PO HS 10/19/24 latanoprost 0.005 % eye drops drp 10/22/24 Current Visit Medications: Current Medications Generic Name Dose Route Start Last Admin Trade Name Freq PRN Reason Stop Dose Admin Acetaminophen 1,000 mg 10/22/24 06:00 Acetaminophen 500 Mg Tab PO 11/21/24 05:59 Q4H PRN PRN Balanced Salt Solution 500 ml 10/22/24 06:00 Balanced Salt Soln.-Plus 500 Ml Bag OP 11/21/24 05:59 DIRECTED NATALIA Miscellaneous Medication 0 ml 10/22/24 06:00 Prednisolone 1%, Moxifloxacin 0.5%, Bromfenac 0.09% 5.6ml Btl OD 11/21/24 05:59 DIRECTED NATALIA Miscellaneous Medication 0 ml 10/22/24 06:00 10/22/24 10:05 Tropicam./Phenyleph. (1/2.5%) 5 Ml Btl OD 11/21/24 05:59 1 drp DIRECTED NATALIA Administration Tetracaine HCl 0 ml 10/22/24 06:00 Tetracaine 0.5% 4 Ml Btl OD 11/21/24 05:59 DIRECTED NATALIA PFSH Active Problems Active Problems: Problem Status Onset Code Primary open-angle glaucoma, left eye, moderate stage Acute H40.1122 Nuclear age-related cataract, right eye Acute H25.11 Fatigue Acute R53.83 Celiac disease Chronic 05/13/13 K90.0 Chronic pain of left ankle Chronic 11/21/16 M25.572, G89.29 Essential hypertension Chronic I10 Knee pain Chronic M25.569 Ulcerative colitis, unspecified Chronic 05/13/13 K51.90 Medical History Medical History Encounter for hepatitis C screening test for low risk patient Tachycardia Abdominal pain Anemia Dizziness and giddiness (05/13/13) Hematuria Knee pain Vertigo Shingles Hematuria unspecified U/A POS: , 04/17, 02/19, 05/23 retest-normal Abdominal pain recurrent Vertigo BPV Anemia now resolved Dizziness and giddiness 05/13/13 Calculus of gallbladder with cholecystitis (05/13/13) Surgical History Surgical History History of total colectomy Status post cholecystectomy Status post tonsillectomy and adenoidectomy Status post total knee replacement S/P tonsillectomy and adenoidectomy History of total colectomy for Ulcerative colitis w/perforation; 1 1 remaining S/P cholecystectomy 09/15/96 S/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 [place]; B/L REPLACEMENT Tonsillectomy and adenoidectomy (~1960) Total colectomy (~1994) FOR ULCERATIVE COLITIS W/ PERFORATION;1 09/16 REMAINING. Cholecystectomy (~1996) Tobacco Smoking/Tobacco Use Status: Former Tobacco Use Passive smoking exposure: No Second hand exposure: Yes () Alcohol Alcohol Intake: never Substance Use Substance use: Never Substance use type: does not use Vital Signs and Lab Results Vital Signs Most Recent Vital Signs in EMR: Most Recent Vital Signs Temp Pulse Resp BP Pulse Ox 36.6 C 84 18 167/78 H 98 10/22/24 09:56 10/22/24 09:56 10/22/24 09:56 10/22/24 09:56 10/22/24 09:56 Lab Results Blood Type / Crossmatch: No Data to Display Complete Blood Count: 2 No Data to Display Complete Metabolic Panel: No Data to Display Liver Function Panel: No Data to Display Coagulation Panel: No Data to Display Cardiac Panel: No Data to Display Arterial Blood Gas: No Data to Display Venous Blood Gas: No Data to Display Pancreas Panel: No Data to Display Thyroid Panel: No Data to Display Infectious Disease: No Data to Display Blood Cultures: No Data to Display Toxicology Panel: No Data to Display Imaging and Studies Imaging and Studies Study information below may be from another EMR and interpreted by another provider. Please see original notes in EMR for more complete details. Stress Test Summary: Stress ECG Conclusion 1. Exercised for 4 minutes and 30 seconds (6 METS). Exercise was stopped due to general fatigue. 2. Patient had no symptoms of ischemia during exercise. 3. Patient's heart rate judy to 126 bpm which is 86% of maximum predicted heart rate. Rate-pressure product was 23,000 4. There is no evidence of ischemia on the ECG at this level of stress. 5. The [place] Score (4) estimates an annual cardiovascular mortality of 1% and a five year survival of 94%. Using the [place] Score there is an intermediate probability of angiographic coronary disease. Echocardiogram Summary: Date of Exam: 11/04/19 Sex: F Admission Date: 11/04/19 : 1945 Age: 74 Exam(s) a US:US echocardiogram APPROVED REPORT EXAM: Comprehensive 2D, Doppler, and color-flow Echocardiogram Patient Location: Out-Patient Mineralogy Teacher: Kelsey Reardon RDCS (AE) Rhythm: NSR Indications: chest pain, unspecified R07.9, tachycardia R00.0 Conclusion Normal left ventricular wall thickness and chamber size. Estimated ejection fraction is 65 to 70%. There are no segmental wall motion abnormalities There is no chamber enlargement Aortic valve is mildly sclerotic. There is no aortic stenosis or regurgitation There is trace to mild mitral, pulmonic and tricuspid regurgitation Anesthesia Assessment and Plan Anesthesia History Personal History: No History of Anesthesia Complications Family History: No Family History of Anesthesia Complications Exercise Tolerance Exercise Tolerance: Metabolic Equivalents>4 Pertinent Negatives Pertinent Negatives: No Symptoms of GERD Cardiac & Pulmonary Exam Cardiac Exam: Normal S1/S2 Heart Sounds Pulmonary Exam: Clear Bilateral Breath Sounds Implantable Cardiac Device Does patient have a Pacemaker or an ICD?: No Airway Exam Known Difficult Airway: No Mallampati Class: 2 Mouth Opening: Normal (> 3cm) Thyromental Distance: Greater than 3 cm Neck Range of Motion: Full ROM Neck Circumference: Normal Teeth Condition: Normal Dentition ASA Classification ASA Score: ASA 2 Emergency Case?: No NPO Status NPO Status: NPO Clears >2 hours, Solids >8 hours Anesthesia Plan Resuscitation Status: Full Code Anesthesia Technique: MAC Anesthesia Airway Planned: Natural Airway Monitors Used: Standard Monitors
[2024-10-22 10:25] VITALS: BMI 35.6
[2024-10-22] MEDS: Tetracaine 0.5% 4 ML BTL OD (11:21)
[2024-10-22] MEDS: Povidone-Iodine Ophth 30 ML BTL (11:22)
[2024-10-22] MEDS: Duovisc Viscoelastic System EACH 1 EACH (11:28)
[2024-10-22] MEDS: Lidocaine 1% Pres-Free 5 ML VIAL (11:29)
[2024-10-22] MEDS: Phenylephrine/Lidocaine (15/10) MG/ML 1 ML VIAL (11:29)
[2024-10-22] MEDS: Balanced Salt Soln.-PLUS 500 ML BAG OP (11:30)
[2024-10-22] MEDS: Moxifloxacin-PF 1 MG/ML VIAL (11:44)
[2024-10-22] MEDS: Prednisolone 1%, Moxifloxacin 0.5%, Bromfenac 0.09% 5.6ML BTL OD (11:45)
[2024-10-22 11:56] VITALS: BP 146/77; PULSE 70; RESP 16; TEMP 36.6; O2SAT 98
--- NOTE | 2024-10-22 11:58 | W.PM.DSUDISC ---
Date of service: 10/22/24 Discharge Plan Disposition Patient Disposition: Home Discharge Details Attending Provider: Moy Sevilla Primary Care Provider: Ignacia De La Rosa Home Meds and New Rx's Prescriptions: No Action ferrous fumarate 325 mg (106 mg iron) tablet 325 mg PO DAILY magnesium 200 mg tablet 200 mg PO DAILY biotin 1 mg capsule 1 mg PO DAILY cyanocobalamin (vitamin B-12) [Vitamin B-12] 500 MCG tablet 1,000 mcg PO DAILY Fish Oil 1 EACH capsule 1 cap PO DAILY acetaminophen [Tylenol Extra Strength] 500 MG tablet 1,000 mg PO BID PRN Co Q-10 (with Vit E) 1 EACH capsule 1 ea PO DAILY multivitamin [Daily Multiple] 1 EACH tablet 1 ea PO DAILY meclizine 12.5 mg tablet 12.5 mg PO TID PRN (Reason: dizziness) Qty: 30 4RF losartan 100 mg tablet 100 mg PO DAILY Qty: 90 0RF amlodipine 5 mg tablet 5 mg PO HS latanoprost 0.005 % drops Patient Comments: INSTILL 1 DROP INTO EACH EYE NIGHTLY AT BEDTIME SHAKE BOTTLE BEFORE USE; PINCH TEAR DUCTS CLOSED AFTER USING Discharge Instructions Stand Alone Forms: DSU Post-Op CataractChristine (DSU) Discharge Orders Discharge Orders: Discharge Order (Routine); Ordered 10/22/24 Ordered By: Moy Sevilla DS: Diagnosis Discharge Diagnosis (1) Nuclear age-related cataract, right eye: Status: Resolved
--- NOTE | 2024-10-22 11:59 | ROE_ITS ---
Operative Note Operative Note PRE-OP DIAGNOSIS: Nuclear cataract, left eye Primary open-angle glaucoma, left eye, moderate stage PROCEDURE: 1. Cataract extraction using phacoemulsification with intraocular lens implant, left eye 2. Insertion of multiple anterior segment aqueous drainage devices ([employer] iStent inject) into trabecular meshwork, left eye SURGEON: Moy Sevilla ANESTHESIA TYPE: Local By Surgeon and MAC Refer to Anesthesia Record ESTIMATED BLOOD LOSS: 0 PATHOLOGY: none sent COMPLICATIONS: None Patient was transported to: same day Patient's condition: stable Implants: 1. Jourdan and Jourdan Vision Tecnis Eyhance DIB00 intraocular lens 2. Glaukos iStent inject trabecular micro-bypass stent Indications: 1. Progressive decreased vision due to cataract, left eye 2. Primary open angle glaucoma, left eye, moderate stage Procedure Description: CATARACT SURGERY OPERATIVE REPORT PREOPERATIVE DIAGNOSIS: Nuclear cataract, left eye Primary open-angle glaucoma, left eye, moderate stage POSTOPERATIVE DIAGNOSIS: Same OPERATION: 1. Cataract extraction using phacoemulsification with posterior chamber intraocular lens implant, left eye. 2. Insertion of multiple anterior segment aqueous drainage devices (Glaukos iStent inject) into trabecular meshwork, left eye IOL: IOL Hair Colorist/Model: Jourdan and Jourdan Vision Tecnis Eyhance DIB00 IOL Power: + 24.0 diopters IOL Serial Number: [id number] Optic Diameter: 6.0mm Haptic/Overall Diameter: 13.0mm PHACO INFO: Freddie Cent[employer]ion Vision System with OZil and Active Fluidics Cumulative Dispersed Energy (CDE): 8.02 seconds TRABECULAR MICRO-BYPASS STENT INFO: Glaukos iStent inject x 2 Reference Number: [id number] Serial Number: [id number] SURGEON: Moy Sevilla MD, FLAVIO ANESTHESIA: Monitored Anesthesia Care (MAC), with local sub-tenon's anesthetic infiltration COMPLICATIONS: None SPECIMENS: None INDICATIONS FOR PROCEDURE: The patient is a 79-year-old lady with history of progressive decreased vision in her right eye secondary to the development of nuclear cataract. She has a history of moderate stage primary open-angle glaucoma and has had previous selective laser trabeculoplasty. She has a severe sulfa allergy so some classes of topical glaucoma medications are ruled out. The option of cataract surgery was offered to the patient and she wished to proceed, along with glaucoma trabecular micro-bypass stent. See office notes for detailed information. PROCEDURE: The correct surgical eye was identified and marked as the left eye and the pupil was dilated in the preoperative area using mydriatics and cycloplegics. The dilated pupil size was 6.0 mm. . The patient was brought to the operating room where cardiopulmonary monitoring was instituted and surgical time-out was performed, confirming the correct operative eye and IOL power. Topical anesthesia was administered and ophthalmic povidone-iodine 5% was instilled into the conjunctival fornices. The lisa-ocular area was prepped with Betadine 10% solution and draped in the usual sterile fashion for intraocular surgery, including an aperture drape. A Tegaderm transparent film dressing was cut in half and used to cover the lashes and lid margins. Care was taken to sequester the lashes and lid margins under the Tegaderm dressing. A lid speculum was placed between the lids of the operative eye and the Freddie Lux[employer] Revalia operating microscope was maneuvered into position. Balwinder scissors were then used to make a conjunctival buttonhole approximately 6mm posterior to the limbus in the inferonasal quadrant. Blunt dissection was carried out to expose bare sclera, and a blunt-tipped sub-tenon?s anesthesia cannula was introduced and passed posteriorly along the globe where non- preserved plain lidocaine was injected into posterior sub-Tenon?s space. A sideport knife was used to make a paracentesis port superior/superiortemporally. Intraocular phenylephrine/lidocaine was injected into the anterior chamber. The anterior chamber was then filled with viscoelastic. A keratome knife was used to construct a clear corneal tunnel extending 2.0mm into clear cornea. . A flap was raised on the anterior capsule and capsulorhexis forceps were used to complete a continuous curvilinear capsulorhexis of 5.0 mm. Balanced salt solution was then used to perform cortical cleaving hydrodissection and nuclear hydrodelineation until the lens could be freely rotated within the capsular bag. The lens nucleus was then disassembled and removed within the capsular bag and iris plane using phacoemulsification. Residual cortical material was removed using the 45-degree angled silicone I/A tip with 0.3mm port. The posterior capsule was carefully polished to remove as much residual lens epithelial cells as safely possible. The capsular bag was then inflated and the anterior chamber deepened with viscoelastic. The lens implant described above was inserted into the capsular bag using the Jourdan and Jourdan Simplicity Injector. A Kuglen hook was used to dial the IOL into position. The anterior chamber was then slightly over-filled with viscoelastic. The microsope and the patient's head were tilted into the ideal position for viewing of the anterior chamber angle. Viscoelastic was placed on the cornea followed by a surgical gonionlens, and the anterior chamber angle landmarks were identified. The [employer] iStent inject handpiece was introduced into the anterior chamber and the insertion sleeve was retracted once the injector was distal to the pupillary margin. The trocar was advanced through the central portion of the trabecular meshwork and into the back wall of Schlemm's canal in the superiornasal quadrant, with care taken to ensure the micro-insertion tube was perpendicular to the trabecular meshwork. The trabecular meshwork was lightly dimpled and the stent was injected without difficulty. The same procedure was then performed in the inferiornasal quradrant. A third stent was then injected easily at the 3 o'clock position. The stents were then examined and noted to be in good position within the trabecular meshwork. A mild amount of blood reflux was noted in the stent apertures. The microscope and the patients head were returned to the normal coaxial position. Viscoelatic was then removed from the anterior chamber using the I/A handpiece. The lens implant was noted to center nicely within the capsular bag. The incisions were stromally hydrated, and the anterior chamber was reformed using BSS. Then 0.5cc of moxifloxacin 1.0mg/ml were injected into the capsular bag and anterior chamber. The incisions were checked with a Weck spear and found to be secure. Several drops of ophthalmic povidone-iodine 5% were then applied to the eye followed by two drops of Imprimis combination prednisolone/moxifloxacin/nepafenac solution. The drapes were removed and a clear plastic protective eye shield was placed over the eye. The patient was then returned to Same Day Surgery in stable condition. Date of Procedure: 10/22/24
--- NOTE | 2024-10-22 12:23 | W.ANESPOSTOP ---
Postoperative Evaluation Date, Time and Location Date Performed: 10/22/24 Time Performed: 12:16 Patient Location: Day Surgery Unit Vital Signs Most Recent Imported Vital Signs: Most Recent Vital Signs Temp Pulse Resp BP Pulse Ox 36.6 C 70 16 146/77 H 98 10/22/24 11:56 10/22/24 11:56 10/22/24 11:56 10/22/24 11:56 10/22/24 11:56 Pain Score Most Recent Pain Score: Most Recent Pain Score Pain Level 0 10/22/24 11:56 Assessment Mental Status: Awake (Alert & Oriented to Patient Baseline) Airway and Respiratory Function: Patent airway with normal (patient baseline) respiratory exam Cardiovascular Function: Hemodynamically Stable Hydration Status: Adequately Hydrated Nausea & Vomiting: No Nausea or Vomiting Pain: Pt. Denies Any Pain Peripheral Nerve Block: Patient did not receive a nerve block
== END 2024-10-22 12:06 | disposition home or self-care (01) ==
PROVIDERS: PCP Family Medicine; Visit Provider Ophthalmology
PROC: (CPT 66991; principal; 2024-10-22 10:30)
DX: H25.12 Age-related nuclear cataract, left eye (principal); H40.1122 Primary open-angle glaucoma, left eye, moderate stage
CPT/HCPCS: 66991; 00123; V2632; J2003

== ENCOUNTER 2024-10-29 11:55 | Day surgery (SDC) | payer OTHER, MEDICARE, SELFPAY ==
[2024-10-29 12:20] VITALS: BP 152/78; PULSE 78; RESP 18; TEMP 36.4; O2SAT 98
[2024-10-29] MEDS: Tropicam./Phenyleph. (1/2.5%) 5 ML BTL OS ×3 (12:40→12:54)
--- NOTE | 2024-10-29 13:40 | ANES.PREOP_ITS ---
General Info Date of Service Date Performed: 10/29/24 Height: 5 ft 7 in Weight: 103.1 kg Body Mass Index (BMI): 35.6 Surgical Procedure: Operation Date: 10/29/24 13:40 Proposed Procedure Side Surgeon p Cataract Extraction with IOL Implant, Glaucoma Stent Left Moy Sevilla MD Meds Allergies and Home Medications Allergies Allergy/AdvReac Type Severity Reaction Status Date / Time propofol Allergy Severe Skin Rash Verified 10/29/24 12:35 Sulfa (Sulfonamide Allergy Severe Other (See Verified 10/29/24 12:35 Antibiotics) Comment) diclofenac Allergy Intermediate Skin Rash Verified 10/29/24 12:35 ibuprofen Allergy Intermediate Hives Verified 10/29/24 12:35 ASHLEY Inhibitors Allergy Unknown Verified 10/29/24 12:35 hepatitis B virus vaccine Allergy Unknown Verified 10/29/24 12:35 loratadine (From Claritin) AdvReac set off Verified 10/29/24 12:35 my colitis and caused urinary urgency Home Medication ?Medication ?Instructions ?Recorded cyanocobalamin (vitamin B-12) 500 1,000 mcg PO DAILY 05/13/13 mcg tablet (Vitamin B-12) omega-3 fatty acids-fish oil 340 1 cap PO DAILY 05/13/13 mg-1,000 mg capsule (Fish Oil) acetaminophen 500 mg tablet 1,000 mg PO BID PRN 11/11/13 (Tylenol Extra Strength) coenzyme Q10 50 mg-vitamin E 5 1 ea PO DAILY 01/22/16 unit capsule (Co Q-10 (with Vit E)) multivitamin (Daily Multiple 1 ea PO DAILY 07/11/16 tablet) biotin 1 mg capsule 1 mg PO DAILY 11/16/20 meclizine 12.5 mg tablet 12.5 mg PO TID PRN dizziness #30 11/20/23 tabs ferrous fumarate 325 mg (106 mg 325 mg PO DAILY 12/01/23 iron) tablet magnesium 200 mg tablet 200 mg PO DAILY 06/01/24 losartan 100 mg tablet 100 mg PO DAILY #90 tab-caps 10/11/24 amlodipine 5 mg tablet 5 mg PO HS 10/19/24 latanoprost 0.005 % eye drops 1 drp ophthalmic (eye) QPM 10/22/24 Current Visit Medications: Current Medications Generic Name Dose Route Start Last Admin Trade Name Freq PRN Reason Stop Dose Admin Acetaminophen 1,000 mg 10/29/24 06:00 Acetaminophen 500 Mg Tab PO 11/28/24 05:59 Q4H PRN PRN Balanced Salt Solution 500 ml 10/29/24 06:00 Balanced Salt Soln.-Plus 500 Ml Bag OP 11/28/24 05:59 DIRECTED [facility] Miscellaneous Medication 0 ml 10/29/24 06:00 Prednisolone 1%, Moxifloxacin 0.5%, Bromfenac 0.09% 5.6ml Btl OS 11/28/24 05:59 DIRECTED NATALIA Miscellaneous Medication 0 ml 10/29/24 06:00 10/29/24 12:54 Tropicam./Phenyleph. (1/2.5%) 5 Ml Btl OS 11/28/24 05:59 1 drp DIRECTED NATALIA Administration Tetracaine HCl 0 ml 10/29/24 06:00 Tetracaine 0.5% 4 Ml Btl OS 11/28/24 05:59 DIRECTED NATALIA PFSH Active Problems Active Problems: Problem Status Onset Code Nuclear age-related cataract, left eye Acute H25.12 Primary open-angle glaucoma, left eye, moderate stage Chronic H40.1122 Fatigue Acute R53.83 Celiac disease Chronic 05/13/13 K90.0 Chronic pain of left ankle Chronic 11/21/16 M25.572, G89.29 Essential hypertension Chronic I10 Knee pain Chronic M25.569 Ulcerative colitis, unspecified Chronic 05/13/13 K51.90 Medical History Medical History Encounter for hepatitis C screening test for low risk patient Tachycardia Abdominal pain Anemia Dizziness and giddiness (05/13/13) Hematuria Knee pain Vertigo Shingles Hematuria unspecified U/A POS: 3, 04/17, 02/19, 05/23 retest-normal Abdominal pain recurrent Vertigo BPV Anemia now resolved Dizziness and giddiness 05/13/13 Calculus of gallbladder with cholecystitis (05/13/13) Surgical History Surgical History Nuclear age-related cataract, right eye History of total colectomy Status post cholecystectomy Status post tonsillectomy and adenoidectomy Status post total knee replacement S/P tonsillectomy and adenoidectomy History of total colectomy for Ulcerative colitis w/perforation; 1 2 remaining S/P cholecystectomy 09/15/96 S/P total knee replacement 03/15/14 B/L Replacement of total knee joint (03/28/14) [facility]; B/L REPLACEMENT Tonsillectomy and adenoidectomy (~1960) Total colectomy (~1994) FOR ULCERATIVE COLITIS W/ PERFORATION;1 09/16 REMAINING. Cholecystectomy (~1996) Tobacco Smoking/Tobacco Use Status: Former Tobacco Use Passive smoking exposure: No Second hand exposure: Yes () Alcohol Alcohol Intake: never Substance Use Substance use: Never Substance use type: does not use Vital Signs and Lab Results Vital Signs Most Recent Vital Signs in EMR: Most Recent Vital Signs Temp Pulse Resp BP Pulse Ox 36.4 C L 78 18 152/78 H 98 10/29/24 12:20 10/29/24 12:20 10/29/24 12:20 10/29/24 12:20 10/29/24 12:20 Lab Results Blood Type / Crossmatch: No Data to Display Complete Blood Count: No Data to Display Complete Metabolic Panel: No Data to Display Liver Function Panel: No Data to Display Coagulation Panel: No Data to Display Cardiac Panel: No Data to Display Arterial Blood Gas: No Data to Display Venous Blood Gas: No Data to Display Pancreas Panel: No Data to Display Thyroid Panel: No Data to Display Infectious Disease: No Data to Display Blood Cultures: No Data to Display Toxicology Panel: No Data to Display Imaging and Studies Imaging and Studies Study information below may be from another EMR and interpreted by another provider. Please see original notes in EMR for more complete details. Stress Test Summary: Stress ECG Conclusion 1. Exercised for 4 minutes and 30 seconds (6 METS). Exercise was stopped due to general fatigue. 2. Patient had no symptoms of ischemia during exercise. 3. Patient's heart rate judy to 126 bpm which is 86% of maximum predicted heart rate. Rate-pressure product was 23,000 4. There is no evidence of ischemia on the ECG at this level of stress. 5. The [place] Score (4) estimates an annual cardiovascular mortality of 1% and a five year survival of 94%. Using the [place] Score there is an intermediate probability of angiographic coronary disease. Echocardiogram Summary: Date of Exam: 11/04/19 Sex: F Admission Date: 11/04/19 : 1945 Age: 74 Exam(s) a US:US echocardiogram APPROVED REPORT EXAM: Comprehensive 2D, Doppler, and color-flow Echocardiogram Patient Location: Out-Patient Networking Specialist: Kelsey Reardon RDCS ([place]) Rhythm: NSR Indications: chest pain, unspecified R07.9, tachycardia R00.0 Conclusion Normal left ventricular wall thickness and chamber size. Estimated ejection fraction is 65 to 70%. There are no segmental wall motion abnormalities There is no chamber enlargement Aortic valve is mildly sclerotic. There is no aortic stenosis or regurgitation There is trace to mild mitral, pulmonic and tricuspid regurgitation Anesthesia Assessment and Plan Anesthesia History Personal History: No History of Anesthesia Complications Family History: No Family History of Anesthesia Complications Exercise Tolerance Exercise Tolerance: Metabolic Equivalents>4 Pertinent Negatives Pertinent Negatives: No Symptoms of GERD, No Major Cardiovascular Symptoms or Complaints and No Major Pulmonary Symptoms or Complaints Cardiac & Pulmonary Exam Cardiac Exam: Normal S1/S2 Heart Sounds Pulmonary Exam: Clear Bilateral Breath Sounds Implantable Cardiac Device Does patient have a Pacemaker or an ICD?: No Airway Exam Known Difficult Airway: No Mallampati Class: 2 Mouth Opening: Normal (> 3cm) Thyromental Distance: Greater than 3 cm Neck Range of Motion: Full ROM Neck Circumference: Normal Teeth Condition: Normal Dentition ASA Classification ASA Score: ASA 2 Emergency Case?: No NPO Status NPO Status: NPO Clears >2 hours, Solids >8 hours Anesthesia Plan Resuscitation Status: Full Code Anesthesia Technique: MAC Anesthesia Airway Planned: Natural Airway Monitors Used: Standard Monitors Preoperative Comments:: No MKO with last cataract.
[2024-10-29] MEDS: Duovisc Viscoelastic System EACH 1 EACH (14:44)
[2024-10-29] MEDS: Moxifloxacin-PF 1 MG/ML VIAL (14:44)
[2024-10-29] MEDS: Lidocaine 1% Pres-Free 5 ML VIAL (14:44)
[2024-10-29] MEDS: Povidone-Iodine Ophth 30 ML BTL (14:45)
[2024-10-29] MEDS: Phenylephrine/Lidocaine (15/10) MG/ML 1 ML VIAL (14:45)
[2024-10-29] MEDS: Balanced Salt Soln.-PLUS 500 ML BAG OP (14:46)
[2024-10-29] MEDS: Tetracaine 0.5% 4 ML BTL OS (14:47)
[2024-10-29] MEDS: Prednisolone 1%, Moxifloxacin 0.5%, Bromfenac 0.09% 5.6ML BTL OS (14:47)
[2024-10-29 15:04] VITALS: BMI 35.6
[2024-10-29 15:09] VITALS: BP 138/80; PULSE 78; RESP 16; TEMP 36.8; O2SAT 98
--- NOTE | 2024-10-29 15:14 | W.PM.DSUDISC ---
Date of service: 10/29/24 Discharge Plan Disposition Patient Disposition: Home Discharge Details Attending Provider: Moy Sevilla Primary Care Provider: Ignacia De La Rosa Home Meds and New Rx's Prescriptions: No Action ferrous fumarate 325 mg (106 mg iron) tablet 325 mg PO DAILY magnesium 200 mg tablet 200 mg PO DAILY biotin 1 mg capsule 1 mg PO DAILY cyanocobalamin (vitamin B-12) [Vitamin B-12] 500 MCG tablet 1,000 mcg PO DAILY Fish Oil 1 EACH capsule 1 cap PO DAILY acetaminophen [Tylenol Extra Strength] 500 MG tablet 1,000 mg PO BID PRN Co Q-10 (with Vit E) 1 EACH capsule 1 ea PO DAILY multivitamin [Daily Multiple] 1 EACH tablet 1 ea PO DAILY meclizine 12.5 mg tablet 12.5 mg PO TID PRN (Reason: dizziness) Qty: 30 4RF losartan 100 mg tablet 100 mg PO DAILY Qty: 90 0RF amlodipine 5 mg tablet 5 mg PO HS latanoprost 0.005 % drops 1 drp ophthalmic (eye) QPM Patient Comments: INSTILL 1 DROP INTO EACH EYE NIGHTLY AT BEDTIME SHAKE BOTTLE BEFORE USE; PINCH TEAR DUCTS CLOSED AFTER USING Discharge Instructions Stand Alone Forms: [facility] Post-Op CataractChristine ([facility]) Discharge Orders Discharge Orders: Discharge Order (Routine); Ordered 10/29/24 Ordered By: Moy Sevilla DS: Diagnosis Discharge Diagnosis (1) Primary open-angle glaucoma, left eye, moderate stage: Status: Chronic (2) Nuclear age-related cataract, left eye: Status: Resolved
--- NOTE | 2024-10-29 15:16 | W.PM.OP ---
Operative Note Operative Note PRE-OP DIAGNOSIS: Nuclear cataract, left eye Primary open-angle glaucoma, left eye, moderate stage POST-OP DIAGNOSIS: same PROCEDURE: Cataract extraction using phacoemulsification with intraocular lens implant, left eye Implantation of mulitple trabecular micro-bypass stents SURGEON: Moy Sevilla ANESTHESIA TYPE: Local By Surgeon and MAC Refer to Anesthesia Record PATHOLOGY: none sent COMPLICATIONS: None Patient was transported to: same day Patient's condition: stable Implants: Freddie Clareon [id number] Glaukos iStents Indications: Progressive decreased vision due to cataract, left eye Primary open angle glaucoma, left eye Procedure Description: CATARACT SURGERY OPERATIVE REPORT PREOPERATIVE DIAGNOSIS: Nuclear cataract, left eye Primary open-angle glaucoma, left eye, moderate stage POSTOPERATIVE DIAGNOSIS: Same OPERATION: 1. Cataract extraction using phacoemulsification with posterior chamber intraocular lens implant, left eye. 2. Insertion of multiple anterior segment aqueous drainage devices (Glaukos iStent) into trabecular meshwork, left eye IOL: IOL Aircraft Hydraulic Equipment Mechanic/Model: Jourdan & Jourdan Eyhance DIB00 IOL Power: + 24.5 diopters IOL Serial Number: [id number] Optic Diameter: 6.0mm Haptic/Overall Diameter: 13.0mm PHACO INFO: Freddie Centurion Vision System with OZil and Active Fluidics Cumulative Dispersed Energy (CDE): 5.73 seconds TRABECULAR MICRO-BYPASS STENT INFO: Glaukos iStent x 3 Reference Number: [id number] Serial Number: [id number] SURGEON: Moy Sevilla MD, FLAVIO ANESTHESIA: Monitored Anesthesia Care (MAC), with local sub-tenon's anesthetic infiltration COMPLICATIONS: None SPECIMENS: None INDICATIONS FOR PROCEDURE: The patient is a 79-year-old lady with history of moderate stage primary open-angle glaucoma who has developed visually significant cataracts in both eyes. She has already undergone cataract surgery in the right eye on 10/22/2024 with implantation of microtrabecular bypass stents. She is doing well postoperatively in the right eye and now presents for cataract surgery in the right eye with minimally invasive glaucoma surgery as well. See office notes for detailed information. PROCEDURE: The correct surgical eye was identified and marked as the left eye and the pupil was dilated in the preoperative area using mydriatics and cycloplegics. The dilated pupil size was 7.0 mm. Oral sedation was administered in the form of an Imprimis MKO Melt (midazolam 3mg/ketamine 25mg/ondansetron 2mg). The patient was brought to the operating room where cardiopulmonary monitoring was instituted and surgical time-out was performed, confirming the correct operative eye and IOL power. Topical anesthesia was administered and ophthalmic povidone-iodine 5% was instilled into the conjunctival fornices. The lisa-ocular area was prepped with Betadine 10% solution and draped in the usual sterile fashion for intraocular surgery, including an aperture drape. A Tegaderm transparent film dressing was cut in half and used to cover the lashes and lid margins. Care was taken to sequester the lashes and lid margins under the Tegaderm dressing. A lid speculum was placed between the lids of the operative eye and the Freddie [employer] Systems[employer] Revalia operating microscope was maneuvered into position. Balwinder scissors were then used to make a conjunctival buttonhole approximately 6mm posterior to the limbus in the inferonasal quadrant. Blunt dissection was carried out to expose bare sclera, and a blunt-tipped sub-tenon?s anesthesia cannula was introduced and passed posteriorly along the globe where non-preserved plain lidocaine was injected into posterior sub-Tenon?s space. A sideport knife was used to make a paracentesis port superiorly/superiortemporally. Intraocular phenylephrine/lidocaine was injected into the anterior chamber. The anterior chamber was then filled with viscoelastic. A keratome knife was used to construct a clear corneal tunnel extending 2.0mm into clear cornea. . A flap was raised on the anterior capsule and capsulorhexis forceps were used to complete a continuous curvilinear capsulorhexis of 5.0 mm. Balanced salt solution was then used to perform cortical cleaving hydrodissection and nuclear hydrodelineation until the lens could be freely rotated within the capsular bag. The lens nucleus was then disassembled and removed within the capsular bag and iris plane using phacoemulsification. Residual cortical material was removed using the 45-degree angled silicone I/A tip with 0.3mm port. The posterior capsule was carefully polished to remove as much residual lens epithelial cells as safely possible. The capsular bag was then inflated and the anterior chamber deepened with viscoelastic. The lens implant described above was inserted into the capsular bag using the Jourdan and Jourdan Simplicity pre-loaded injector. A Kuglen hook was used to dial the IOL into position. The anterior chamber was then slightly over-filled with viscoelastic. The microsope and the patient's head were tilted into the ideal position for viewing of the anterior chamber angle. Viscoelastic was placed on the cornea followed by a surgical gonionlens, and the anterior chamber angle landmarks were identified. The [employer] iStent injection handpiece was introduced into the anterior chamber and the insertion sleeve was retracted. The trocar was advanced through the central portion of the trabecular meshwork and into the back wall of Schlemm's canal in the nasal quadrant, with care taken to ensure the micro-insertion tube was perpendicular to the trabecular meshwork. The trabecular meshwork was lightly dimpled and the stent was injected without difficulty. The same procedure was then performed in the inferiornasal quradrant. A third stent was then injected into the superiornasal quadrant. The stents were then examined and noted to be in good position within the trabecular meshwork. The microscope and the patients head were returned to the normal coaxial position. Viscoelatic was then removed from the anterior chamber using the I/A handpiece. Blanching of the deep conjunctival vessels was noted nasally during removal of viscoelastic. The lens implant was noted to center nicely within the capsular bag. The incisions were stromally hydrated, and the anterior chamber was reformed using BSS. Then 0.5cc of moxifloxacin 1.0mg/ml were injected into the capsular bag and anterior chamber. The incisions were checked with a Weck spear and found to be secure. Several drops of ophthalmic povidone-iodine 5% were then applied to the eye followed by two drops of Imprimis combination prednisolone/moxifloxacin/nepafenac solution. The drapes were removed and a clear plastic protective eye shield was placed over the eye. The patient was then returned to Same Day Surgery in stable condition.. Date of Procedure: 10/29/24
--- NOTE | 2024-10-29 15:31 | W.ANESPOSTOP ---
Postoperative Evaluation Date, Time and Location Date Performed: 10/29/24 Time Performed: 15:09 Patient Location: Day Surgery Unit Vital Signs Most Recent Imported Vital Signs: Most Recent Vital Signs Temp Pulse Resp BP Pulse Ox 36.8 C 78 16 138/80 98 10/29/24 15:09 10/29/24 15:09 10/29/24 15:09 10/29/24 15:09 10/29/24 15:09 Pain Score Most Recent Pain Score: Most Recent Pain Score Pain Level 0 10/29/24 15:09 Assessment Mental Status: Awake (Alert & Oriented to Patient Baseline) Airway and Respiratory Function: Patent airway with normal (patient baseline) respiratory exam Cardiovascular Function: Hemodynamically Stable Hydration Status: Adequately Hydrated Nausea & Vomiting: No Nausea or Vomiting Pain: Pt. Denies Any Pain Peripheral Nerve Block: Patient did not receive a nerve block
[2024-10-29 15:38] VITALS: BP 147/77; PULSE 69; RESP 16; TEMP 36.4; O2SAT 99
--- NOTE | 2024-11-02 12:13 | ROE_ITS ---
Operative Note Operative Note PRE-OP DIAGNOSIS: Nuclear cataract, right eye Primary open-angle glaucoma, right eye, moderate stage POST-OP DIAGNOSIS: same PROCEDURE: Jourdan & Jourdan Eyhance DIB00 Glaukos iStents SURGEON: Moy Sevilla ANESTHESIA TYPE: Local By Surgeon and MAC Refer to Anesthesia Record PATHOLOGY: none sent COMPLICATIONS: None Patient was transported to: same day Patient's condition: stable Implants: Jourdan & Jourdan Eyhance DIB00 Glaukos iStents Indications: 1. Progressive decreased vision due to cataract, right eye 2. Open angle glaucoma, right eye Procedure Description: CATARACT SURGERY OPERATIVE REPORT PREOPERATIVE DIAGNOSIS: Nuclear cataract, right eye Primary open-angle glaucoma, right eye, moderate stage POSTOPERATIVE DIAGNOSIS: Same OPERATION: 1. Cataract extraction using phacoemulsification with posterior chamber intraocular lens implant, right eye. 2. Insertion of multiple anterior segment aqueous drainage devices (Glaukos iStent inject) into trabecular meshwork, right eye IOL: IOL [employer] Attorney/Model: [employer] Eyhance DIB00 IOL Power: + 24.0 diopters IOL Serial Number: [id number] Optic Diameter: 6.0mm Haptic/Overall Diameter: 13.0mm PHACO INFO: Freddie Centurion Vision System with OZil and Active Fluidics Cumulative Dispersed Energy (CDE): 8.02 seconds TRABECULAR MICRO-BYPASS STENT INFO: Glaukos iStent inject x 3 Reference Number: IS3 Serial Number: [id number] SURGEON: Moy Sevilla MD, FLAVIO ANESTHESIA: Monitored Anesthesia Care (MAC), with local sub-tenon's anesthetic infiltration COMPLICATIONS: None SPECIMENS: None INDICATIONS FOR PROCEDURE: Patient is a 79-year-old lady with history of progressive decreased vision in her right eye secondary to the development of nuclear cataract. She has a history of primary open-angle glaucoma, moderate stage, and has had previous selective laser trabeculoplasty. She has a severe sulfa allergy, so some classes of topical glaucoma medications she cannot use. The option of cataract surgery was offered to the patient and she wished to proceed, along with minimally invasive glaucoma surgery in the form of trabecular micro-bypass stent. She desires to remain myopic after cataract surgery, postoperative refractive target is -2.0 diopters. See office notes for detailed information. PROCEDURE: The correct surgical eye was identified and marked as the right eye and the pupil was dilated in the preoperative area using mydriatics and cycloplegics. The dilated pupil size was 6.0 mm. The patient elected to proceed without oral sedation. The patient was brought to the operating room where cardiopulmonary monitoring was instituted and surgical time-out was performed, confirming the correct operative eye and IOL power. Topical anesthesia was administered and ophthalmic povidone-iodine 5% was instilled into the conjunctival fornices. The lisa-ocular area was prepped with Betadine 10% solution and draped in the usual sterile fashion for intraocular surgery, including an aperture drape. A Tegaderm transparent film dressing was cut in half and used to cover the lashes and lid margins. Care was taken to sequester the lashes and lid margins under the Tegaderm dressing. A lid speculum was placed between the lids of the operative eye and the Freddie [employer] Revalia operating microscope was maneuvered into position. Balwinder scissors were then used to make a conjunctival buttonhole approximately 6mm posterior to the limbus in the inferonasal quadrant. Blunt dissection was carried out to expose bare sclera, and a blunt-tipped sub-tenon?s anesthesia cannula was introduced and passed posteriorly along the globe where non- preserved plain lidocaine was injected into posterior sub-Tenon?s space. A sideport knife was used to make a paracentesis port. Intraocular phenylephrine/lidocaine was injected into the anterior chamber. The anterior chamber was then filled with viscoelastic. A keratome knife was used to construct a 2-plane clear corneal tunnel extending 2.0mm into clear cornea. A flap was raised on the anterior capsule and capsulorhexis forceps were used to complete a continuous curvilinear capsulorhexis of 5.0 mm. Balanced salt solution was then used to perform cortical cleaving hydrodissection and nuclear hydrodelineation until the lens could be freely rotated within the capsular bag. The lens nucleus was then disassembled and removed within the capsular bag and iris plane using phacoemulsification. Residual cortical material was removed using the irrigation/aspiration handpiece. The posterior capsule was carefully polished to remove as much residual lens epithelial cells as safely possible. The capsular bag was then inflated and the anterior chamber deepened with cohesive viscoelastic. The lens implant described above was inserted into the capsular bag using the Jourdan and Jourdan Simplicity Injector. A Kuglen hook was used to dial the IOL into position. The anterior chamber was then slightly over-filled with viscoelastic. The microsope and the patient's head were tilted into the ideal position for viewing of the anterior chamber angle. Viscoelastic was placed on the cornea followed by a surgical gonionlens, and the anterior chamber angle landmarks were identified. The Terrajoule iStent Infinite handpiece was introduced into the anterior chamber and the insertion sleeve was retracted once the injector was distal to the pupillary margin. The trocar was advanced through the central portion of the trabecular meshwork and into the back wall of Schlemm's canal in the inferonasal quadrant, with care taken to ensure the micro-insertion tube was perpendicular to the trabecular meshwork. The trabecular meshwork was lightly dimpled and the stent was injected without difficulty. The same procedure was then performed in the superiornasal quadrant. A third stent was injected at the 3 o'clock position in the nasal quadrant. The stents were then examined and noted to be in good position within the trabecular meshwork. The microscope and the patients head were returned to the normal coaxial position. Viscoelatic was then removed from the anterior chamber using the I/A handpiece. The lens implant was noted to center nicely within the capsular bag. The incisions were stromally hydrated, and the anterior chamber was reformed using BSS. Then 0.5cc of moxifloxacin 1.0mg/ml were injected into the capsular bag and anterior chamber. The incisions were checked with a Weck spear and found to be secure. Several drops of ophthalmic povidone-iodine 5% were then applied to the eye followed by two drops of Imprimis combination prednisolone/moxifloxacin/nepafenac solution. The drapes were removed and a clear plastic protective eye shield was placed over the eye. The patient was then returned to Same Day Surgery in stable condition. Date of Procedure: 10/22/24
== END 2024-10-29 15:44 | disposition home or self-care (01) ==
LOC: SUR 11:55
PROVIDERS: PCP Family Medicine; Visit Provider Ophthalmology
PROC: (CPT 66991; principal; 2024-10-29 13:30)
DX: H40.1122 Primary open-angle glaucoma, left eye, moderate stage (principal); H25.12 Age-related nuclear cataract, left eye; Z98.41 Cataract extraction status, right eye
CPT/HCPCS: 66991; 00123; V2632; J2003

== ENCOUNTER 2024-12-07 12:18 | Outpatient (CLI) | payer OTHER, MEDICARE, SELFPAY ==
[2024-12-07 12:33] LABS: ALT 20 U/L (14-59); AST 16 U/L (15-37); Albumin 3.8 g/dL (3.4-5.0); Alkaline Phosphatase 90 U/L (46-116); Anion Gap 8.2 mmol/L (3-11); BUN 25 mg/dL (7-18); Bilirubin, Total 0.6 mg/dL (0.2-1.0); CO2 26.8 mmol/L (21.0-32.0); CREATININE 1.3 mg/dL (0.55-1.02); Chloride 107 mmol/L (98-107); Estimated GFR 41.83 (mL/min/1.73m2); Glucose 100 mg/dL (74-106); Potassium 4.5 mmol/L (3.5-5.1); Sodium 142 mmol/L (136-145); Total Protein 7.2 g/dL (6.4-8.2); Vitamin B12 1237 pg/mL (193-986)
== END 2024-12-07 12:19 | disposition home or self-care (01) ==
LOC: LBO 12:19
PROVIDERS: PCP Family Medicine; Visit Provider Family Medicine
DX: I10 Essential (primary) hypertension (principal); E53.8 Deficiency of other specified B group vitamins
CPT/HCPCS: 36415; 80053; 82607